=== PATIENT | female | born 1990 | race Caucasian/White ===

== ENCOUNTER 2016-11-13 10:54 | Emergency (ER) | payer OTHER, MEDICAID ==
[~2016-11-13] VITALS: Wt 90.0 kg
[2016-11-13 12:44] LABS: BASOPHILS % 0.4 % (0.0-2.0); EOSINOPHILS # 0.2 10^3/ul (0.0-0.5); EOSINOPHILS % 2.4 % (0.0-7.0); HEMATOCRIT 37.2 % (37.0-47.0); HEMOGLOBIN 12.3 g/dl (12.0-16.0); LYMPHOCYTES # 2.6 10^3/ul (0.8-2.9); LYMPHOCYTES % 27.6 % (15.0-51.0); MEAN CORPUSCULAR HEMOGLOBIN 25.7 pg (29.0-33.0); MEAN CORPUSCULAR HGB CONC 33.2 g/dl (32.0-37.0); MEAN CORPUSCULAR VOLUME 77.3 fl (82.0-101.0); MEAN PLATELET VOLUME 9.9 fl (7.4-10.4); MONOCYTE # 0.8 10^3/ul (0.3-0.9); MONOCYTES % 8.9 % (0.0-11.0); NEUTROPHIL # 5.7 10^3/ul (1.6-7.5); NEUTROPHILS % 60.7 % (39.0-77.0); PLATELET COUNT 245 10^3/UL (140-440); RED BLOOD COUNT 4.81 10^6/ul (4.20-5.40); UNCORRECTED WBC 9.4 10^3/ul (4.8-10.8); WHITE BLOOD COUNT 9.4 10^3/ul (4.8-10.8)
[2016-11-13 12:52] LABS: ADD UMIC YES; URINE BILIRUBIN (Dip) NEGATIVE (NEGATIVE); URINE BLOOD (Dip) 3+ (NEGATIVE); URINE COLOR LT. YELLOW (YELLOW); URINE GLUCOSE (Dip) NEGATIVE (NEGATIVE); URINE KETONES (Dip) NEGATIVE (NEGATIVE); URINE LEUKOCYTE ESTERASE (Dip) TRACE (NEGATIVE); URINE NITRITE (Dip) NEGATIVE (NEGATIVE); URINE TOTAL PROTEIN (Dip) NEGATIVE (NEGATIVE); URINE UROBILINOGEN (Dip) 0.2 E.U./dL (0.1-1.0)
[2016-11-13 12:55] LABS: CONDITION 1; LH ANALYZER COMMENTS 1
--- NOTE | 2016-11-13 12:59 | RADRPT ---
PROCEDURE: US OB. CLINICAL INDICATION: Vaginal bleeding. TECHNIQUE: Transabdominal and transvaginal views of the pelvis are available for review. COMPARISON: No prior studies are available for comparison. FINDINGS: The uterus is normal in size and echotexture measuring 8.9 x 3.8 x 5.4 cm. There is an intrauterine gestational sac with a yolk sac and pole. There is no cardiac activity identified. The mean sac size measures 0.89 cm consistent with 6-ijpf-9-day gestation. Mean crown-rump length is 0.55 c m consistent with a 6-dbfa-5-day gestation. There are no abnormal fluid collections identified. Th e right ovary is visualized and measures 3.3 x 2.5 x 2.4 cm. The left ovary is not seen. The adnex a are unremarkable. IMPRESSION: 1. Single intrauterine gestation with a mean gestational age of 5 weeks 6 days plus or minus 3 days. This is consistent with an estimated date of delivery 07/10/2017. However, no cardiac activity is identified at this time. Therefore, serial quantitative beta HCGs and follow-up ultrasound is michelle chatterjee. RPTAT: [facility] Physician Caryl Date Time Electronically viewed and signed by Physician Caryl on 11/13/2016 12:59 /
[2016-11-13] MEDS ORDERED: NITR-58 PO (14:08)
--- NOTE | 2016-11-13 15:45 | ERD ---
DATE OF SERVICE: 11/13/2016 HISTORY OF PRESENT ILLNESS: The patient is a 26-year-old female complaining of vaginal bleeding for the last 2 days. She states it has increased over the last couple of days. She is G1, P0, A0. Sh e states she is about 6 weeks' . Last normal menstrual period was 08/26/2016. She has been seen at her OB. Denies any fever or chills. No abdominal pain. PAST MEDICAL HISTORY: Denies. ALLERGIES TO MEDICATIONS: DENIES. PAST SURGICAL HISTORY: Denies. SOCIAL HISTORY: Denies. REVIEW OF SYSTEMS: A 12-point review of systems was done. Refer to HPI for positives, all other sy stems negative. PHYSICAL EXAMINATION VITAL SIGNS: Temperature is 98.4, pulse 80, blood pressure is 130/84, respiratory rate 21, O2 satur ation 96% on room air. Pain intensity is 6/10. GENERAL: The patient is well-appearing, well-nourished, no acute distress. HEENT: Atraumatic. Conjunctivae are pink. Pupils equal, round, and reactive to light. There is no s cleral icterus. Tympanic membranes clear bilaterally. Oropharynx clear. No nystagmus or photophobia . CHEST: Clear to auscultation bilaterally. There are no rales, wheezes or rhonchi. HEART: Regular rate and rhythm. No murmurs, clicks, rubs or gallops. No S3 or S4. ABDOMEN: Soft, nontender and nondistended. Good bowel sounds. No rebound or guarding. No gross gorge tonitis. No gross organomegaly or masses. No Downs sign or McBurney point tenderness. EMERGENCY ROOM COURSE: The patient had blood work done in the ER. CBC was within normal limits. B eta quant was 3319.2. The patient's urine showed trace leukocytes with 0 to 2 white blood cells. B lood type is O positive. Obstetric ultrasound showed a single intrauterine gestation with mean gest ational age of 5 weeks and 6 days plus/minus 3 days consistent with an estimated delivery of 017; however, no cardiac activity identified at this time. Serial beta quant hCGs and followup ultr asound suggested. DIAGNOSIS: Threatened . MEDICAL DECISION MAKING: I have low suspicion for hemodynamic instability. The patient's hemoglobi n is stable. The patient's vital signs are stable. The patient's exam is nonconcerning. No indica tion for RhoGAM injection as patient is Rh positive. Low suspicion for ectopic as IUP is seen in uterus. DISCHARGE: The patient is discharged stable. The patient is given a prescription for Macrobid as t here is concern for possible UTI and told to follow up in 2 days for recheck of beta hCG with the ER or her OB. All other questions answered at time of discharge. Discharge summary given at the time of departure. The patient understood and complied with plan. Dictated By: LORENA MILLS for HAROON COLON/NTS Conf#: [id number] DID#: [id number]
== END 2016-11-13 14:38 | disposition home or self-care (01) ==
LOC: FTE 10:54
DX: O20.0 Threatened abortion (principal)
CPT/HCPCS: 36415; 76801; 76817; 81001; 81003; 84702; 85025; 86900; 86901

== ENCOUNTER 2016-11-15 16:14 | Emergency (ER) | payer OTHER, MEDICAID ==
[~2016-11-15] VITALS: Ht 165.1 cm; Wt 94.5 kg
[~2016-11-15 16:14] MED LIST: NITR-58 PO
[2016-11-15 16:24] VITALS: Ht 165.1 cm; Wt 94.5 kg
[2016-11-15 18:28] LABS: ADD SCAN DIFF NO
--- NOTE | 2016-11-15 18:32 | RADRPT ---
PROCEDURE: OB Ultrasound. CLINICAL INDICATION: Positive test. Vaginal bleeding. TECHNIQUE: Ultrasound of the pelvis was performed with transabdominal and transvaginal sonography in the axial and sagittal planes. COMPARISON: No prior study is available for comparison. FINDINGS: There is no intrauterine gestational sac. The uterus is normal in size and there is no uterine mass . The endometrium is normal measuring 8 mm. The right ovary appears normal measuring 3.1 x 2.4 x 2.7 cm. The left ovary appears normal measuring 3.2 x 1.7 x 1.5 cm. Color Doppler and pulsed Doppler sonography demonstrate normal flow to the ovaries. There is no other pelvic mass or free fluid. IMPRESSION: 1. No intrauterine gestational sac. If the patient has a positive test, ectopic gestatio n cannot be excluded. 2. Otherwise normal pelvic ultrasound. RPTAT: QQ .Cash Bull MD, Date Time Electronically viewed and signed by .Cash Bull MD, on 11/15/2016 18:32 .R/
[2016-11-15 18:33] LABS: BASOPHILS % 0.3 % (0.0-2.0); EOSINOPHILS # 0.3 10^3/ul (0.0-0.5); EOSINOPHILS % 3.1 % (0.0-7.0); HEMATOCRIT 37.5 % (37.0-47.0); HEMOGLOBIN 11.6 g/dl (12.0-16.0); LYMPHOCYTES # 3.5 10^3/ul (0.8-2.9); LYMPHOCYTES % 37.4 % (15.0-51.0); MEAN CORPUSCULAR HEMOGLOBIN 24.6 pg (29.0-33.0); MEAN CORPUSCULAR HGB CONC 30.9 g/dl (32.0-37.0); MEAN CORPUSCULAR VOLUME 79.6 fl (82.0-101.0); MEAN PLATELET VOLUME 11.2 fl (7.4-10.4); MONOCYTE # 0.7 10^3/ul (0.3-0.9); MONOCYTES % 7.9 % (0.0-11.0); NEUTROPHIL # 4.8 10^3/ul (1.6-7.5); NEUTROPHILS % 51.1 % (39.0-77.0); PLATELET COUNT 278 10^3/UL (140-415); RED BLOOD COUNT 4.71 10^6/ul (4.20-5.40); WHITE BLOOD COUNT 9.3 10^3/ul (4.8-10.8)
--- NOTE | 2016-11-15 18:42 | ERD ---
ER Documentation Chief Complaint Date/Time DATE: 11/15/16 TIME: 18:41 Chief Complaint VAG BLEED X 2 WEEKS , 6 WEEKS PREG HPI 26-year-old female who is approximately 5 weeks and 6 days on ultrasound 2 days ago comes back in for vaginal bleeding for recheck. And this is her first she is A0, last menstrual period was on August 26, 2016. She has had vaginal bleeding for almost 2 weeks now it became much heavier on Friday and Friday and decreased today. She has diffuse pelvic cramping as slight. No heart tones were seen 2 days ago. ROS All systems reviewed and are negative except as per history of present illness. Medications Home Meds Active Scripts Nitrofurantoin Monohyd Macrocr* (Macrobid*) 100 Mg Capsr, 100 MG PO BID for 14 Days, CAP Prov:ALICIA GLORIA PA-C 11/13/16 PMhx/Soc Medical and Surgical Hx: pt denies Medical Hx, pt denies Surgical Hx Hx Alcohol Use: No Hx Substance Use: No Hx Tobacco Use: No Physical Exam Vitals Vital Signs Date Time Temp Pulse Resp B/P Pulse Ox O2 Delivery O2 Flow Rate FiO2 11/15/16 16:24 98.0 82 18 142/67 99 Physical Exam General: Well-developed, well-nourished. The patient appears in no acute distress. HEENT: Head is normocephalic, atraumatic. No scleral icterus. Neck: Supple. Nontender. Lungs: Clear to auscultation. Normal air movement. Heart: Regular rate and rhythm. S1 and S2 are normal. No murmurs, gallops, or rubs. Abdomen: Soft, nontender, nondistended. Bowel sounds are normoactive. Extremities: No clubbing or cyanosis. Normal pulses. Moving extremities x 4. No weakness. Neurologic: Alert and oriented 3. No focal deficits. Skin: Normal turgor. No rash or lesions. Result Diagram: 11/15/16 1820 Results 24 hrs Laboratory Tests Test 11/15/16 18:17 11/15/16 18:20 Urine Bacteria FEW Urine Bilirubin NEGATIVE Urine Clarity CLOUDY Urine Color YELLOW Urine Epithelial Cells FEW Urine Glucose NEGATIVE% Urine Hemoglobin 3+ Urine Ketones NEGATIVE Urine Leukocyte Esterase NEGATIVE Urine Microscopic RBC >50/HPF Urine Microscopic WBC 2-5/HPF Urine Nitrite NEGATIVE Urine Specific Wasta 1.020 Urine Total Protein TRACE Urine Urobilinogen 0.2 E.U./dL Urine pH 7.5 Basophils # 0.010^3/ul Basophils % 0.3% Beta HCG, Quantitative 493.2mIU/ml Eosinophils # 0.310^3/ul Eosinophils % 3.1% Hematocrit 37.5% Hemoglobin 11.6g/dl Lymphocytes # 3.510^3/ul Lymphocytes % 37.4% Mean Corpuscular Hemoglobin 24.6pg Mean Corpuscular Hemoglobin Concent 30.9g/dl Mean Corpuscular Volume 79.6fl Mean Platelet Volume 11.2fl Monocytes # 0.710^3/ul Monocytes % 7.9% Neutrophils # 4.810^3/ul Neutrophils % 51.1% Nucleated Red Blood Cells # 0.010^3/ul Nucleated Red Blood Cells % 0.0/100WBC Platelet Count 03316^3/UL Red Blood Count 4.7110^6/ul Red Cell Distribution Width 15.0% White Blood Count 9.310^3/ul PROCEDURE: OB Ultrasound. CLINICAL INDICATION: Positive test. Vaginal bleeding. TECHNIQUE: Ultrasound of the pelvis was performed with transabdominal and transvaginal sonography in the axial and sagittal planes. COMPARISON: No prior study is available for comparison. FINDINGS: There is no intrauterine gestational sac. The uterus is normal in size and there is no uterine mass. The endometrium is normal measuring 8 mm. The right ovary appears normal measuring 3.1 x 2.4 x 2.7 cm. The left ovary appears normal measuring 3.2 x 1.7 x 1.5 cm. Color Doppler and pulsed Doppler sonography demonstrate normal flow to the ovaries. There is no other pelvic mass or free fluid. IMPRESSION: 1. No intrauterine gestational sac. If the patient has a positive test, ectopic gestation cannot be excluded. 2. Otherwise normal pelvic ultrasound. RPTAT: QQ .Cash Bull MD, Date Time Electronically viewed and signed by .Cash Bull MD, MD on 11/15/2016 18:32 .R/ Procedures/MDM 26-year-old female this is her first comes in with vaginal bleeding, ultrasound is empty at this time compared to 2 days ago. She had an ultrasound that showed a gestational sac consistent with 5 weeks and 6 days she is here for a 48 hour recheck, and it appears that the patient likely had a miscarriage. Her hCG quantitative reduced from 3319 to less than 500 today. There is no evidence of retained products. Her type and Rh was reviewed from yesterday that was O+ so no indication for RhoGam. She is to return if she has any worsening pain or symptoms, or fevers. At this time she is hemodynamically stable, does not show signs of infection is appropriate to be discharged home. Departure Diagnosis: Primary Impression: Miscarriage Condition: JOSE C Mares PA-C Nov 15, 2016 18:42
[2016-11-15 18:49] LABS: ADD UMIC YES; URINE BILIRUBIN (Dip) NEGATIVE (NEGATIVE); URINE BLOOD (Dip) 3+ (NEGATIVE); URINE COLOR YELLOW (YELLOW); URINE GLUCOSE (Dip) NEGATIVE (NEGATIVE); URINE KETONES (Dip) NEGATIVE (NEGATIVE); URINE LEUKOCYTE ESTERASE (Dip) NEGATIVE (NEGATIVE); URINE NITRITE (Dip) NEGATIVE (NEGATIVE); URINE TOTAL PROTEIN (Dip) TRACE (NEGATIVE); URINE UROBILINOGEN (Dip) 0.2 E.U./dL (0.1-1.0)
[2016-11-15 19:02] LABS: BACTERIA,URINE FEW; URINE RBCS >50 /HPF (0)
== END 2016-11-15 19:45 | disposition home or self-care (01) ==
LOC: FTE 16:14
DX: O20.0 Threatened abortion (principal)
CPT/HCPCS: 36415; 76801; 76817; 81001; 81003; 84702; 85025